=== PATIENT | male | born 1945 | race Caucasian/White ===

== ENCOUNTER 2017-02-12 13:45 | Inpatient (IN) | payer BC ==
--- NOTE | 2017-02-12 14:09 | Emergency Department Record ---
History of Present Illness - General Chief Complaint: Confusion Stated Complaint: CONFUSED Time Seen by Provider: 02/12/17 13:46 Source: Family (patient's ) Mode of Arrival: Wheelchair Limitations: No limitations - History of Present Illness Initial Comments: 71 yo male presents to ED with worsening confusion and decreased intake that began last night. Patient's reports history of cirrhosis and hepatic encephalopathy with similar symptoms as today. Patient's denies any recent illness, fevers, or cough symptoms. Patient has missed 3 doses of his lactulose as well. MD Complaint: Altered mental status Onset/Timin -: Days(s) Severity: Mild Consistency: Constant Context: Liver disease, History of similar presentation Associated Symptoms: Denies other symptoms - Gray Coma Scale Eye Response: (4) Open spontaneously Motor Response: (6) Obeys commands Verbal Response: (4) Confused conversation Jase Total: 14 - Related Data Home Medications Medication Instructions Recorded Confirmed Last Taken Lansoprazole [Prevacid] 30 mg PO BIDAC 10/26/14 02/12/17 02/11/17 Pravastatin Sodium [Pravachol] 40 mg PO DAILY 10/26/14 02/12/17 02/11/17 Rifaximin [Xifaxan] 550 mg PO BID 10/26/14 02/12/17 02/11/17 Aspirin [Aspirin EC] 81 mg PO DAILY 12/18/14 02/12/17 02/11/17 Vitamin E 100 unit PO DAILY 10/12/16 02/12/17 02/11/17 Furosemide 40 mg PO DAILY 11/10/16 02/12/17 02/11/17 Spironolactone [Aldactone] 100 mg PO DAILY 11/10/16 02/12/17 02/11/17 Previous Rx's Medication Instructions Recorded Lactulose 30 gm PO TID #4257 ml 12/11/15 Allergies Allergy/AdvReac Type Severity Reaction Status Date / Time No Known Drug Allergies Allergy Verified 11/08/16 13:07 Travel Screening - Travel/Exposure Within Last 30 Days Have you traveled within the last 30 days?: No - Travel/Exposure Within Last Year Have you traveled outside the [place] in the last year?: No - Additonal Travel Details Have you been exposed to anyone with a communicable illness?: No - Travel Symptoms Symptom Screening: None Review of Systems ROS unobtainable: Due to mental status Neurological: Reports: Confusion Past Medical History - SOCIAL HISTORY Smoking Status: Former smoker Alcohol Use: None Drug Use: None - RESPIRATORY Hx Respiratory Disorders: Yes Hx Sleep Apnea: Yes (20 years) - CARDIOVASCULAR Hx Cardio Disorders: No Comment:: high cholesterol - NEURO Hx Neuro Disorders: Yes Comment:: encephalopathy - GI Hx GI Disorders: Yes Hx Reflux: Yes Hx Liver Disease: Yes - Hx Genitourinary Disorders: Yes Hx Kidney Stones: Yes (10/20/15) Hx UTI: Yes - ENDOCRINE Hx Endocrine Disorders: No - MUSCULOSKELETAL Hx Musculoskeletal Disorders: Yes Hx Arthritis: Yes - PSYCH Hx Psych Problems: No - HEMATOLOGY/ONCOLOGY Hx Hematology/Oncology Disorders: No Hx Bruising: Yes Family Medical History Any Significant Family History?: No Physical Exam - General General Appearance: Alert, Cooperative, No acute distress Limitations: Altered mental status - Head Head exam: Atraumatic, Normocephalic, Normal inspection Head exam detail: negative: Abrasion, Contusion, Salazar's sign, General tenderness, Hematoma, Laceration - Eye Eye exam: Normal appearance. negative: Conjunctival injection, Periorbital swelling, Periorbital tenderness, Scleral icterus - ENT ENT exam: Mucous membranes dry Ear exam: negative: Auricular hematoma, Auricular trauma Nasal Exam: negative: Active bleeding, Discharge, Dried blood, Foreign body Mouth exam: negative: Drooling, Laceration, Muffled voice, Tongue elevation - Neck Neck exam: Normal inspection. negative: Meningismus, Tenderness - Respiratory Respiratory exam: Normal lung sounds bilaterally. negative: Rales, Respiratory distress, Rhonchi, Stridor - Cardiovascular Cardiovascular Exam: Regular rate, Normal rhythm, Normal heart sounds - GI/Abdominal GI/Abdominal exam: Soft, Tenderness (mild, diffuse TTP on examination, no rebound, guarding present). negative: Rebound, Rigid - Rectal Rectal exam: Deferred - exam: Deferred - Extremities Extremities exam: Normal inspection. negative: Calf tenderness, Pedal edema, Tenderness - Back Back exam: Denies: CVA tenderness (R), CVA tenderness (L) - Neurological Neurological exam: Alert, Altered - Psychiatric Psychiatric exam: Normal affect, Normal mood - Skin Skin exam: Normal color. negative: Abrasion Type of lesion: negative: abrasion Course Vital Signs 02/12/17 13:47 Temperature 97.7 F Pulse Rate 63 Respiratory 16 Rate Blood Pressure 100/69 Pulse Ox 99 - Reevaluation(s) Reevaluation #1: 02/12/17 14:43 Labs reviewed, pancytopenia is present, Ammonia level 89 (3x normal). Lactulose ordered. INR, Troponin, and UA pending at this time. Reevaluation #2: 02/12/17 14:50 CT Brain: No acute process Reevaluation #3: 02/12/17 14:53 Case was discussed with Dr. Diaz, will admit for further evaluation and treatment of hepatic encephalopathy. Reevaluation #4: 02/12/17 15:07 EKG: NSR 54 Normal axis, normal intervals Low voltage anterior leads, no acute ST-T wave changes Medical Decision Making - Lab Data Result diagrams: 02/12/17 14:14 02/12/17 14:14 Disposition Disposition: Admit Clinical Impression: Hepatic encephalopathy Disposition: Still a Patient at [facility] Decision to Admit: Admit from ER Decision to Admit Date: 02/12/17 Decision to Admit Time: 14:53 Condition: (2) Stable Time of Disposition: 14:54
[2017-02-12 14:21] LABS: HEMATOCRIT 35.9 % (42.0-52.0); HEMOGLOBIN 12.8 gm/dl (14.0-18.0); MEAN CELL VOLUME 99.4 fl (81-97); MEAN CORPUSCULAR HGB CONC 35.7 g/dl (32-36); MEAN PLATELET VOLUME 10.7 fl (7.4-10.4); PLATELET COUNT 109 K/uL (130-400); RED BLOOD COUNT 3.61 M/uL (4.40-5.70); RED CELL DISTRIBUTION WIDTH 17.4 % (11.5-14.5); WHITE BLOOD COUNT W/O DIFF 3.1 K/uL (4.2-12.2)
[2017-02-12 14:27] LABS: MEAN CORPUSCULAR HEMOGLOBIN 35.4 pg (27-33)
[2017-02-12 14:33] LABS: ALB/GLOB RATIO 0.8 (1.1-1.8); ALBUMIN 2.6 gm/dL (3.5-5.0); ALKALINE PHOSPHATASE 105 U/L (38-126); ALT/SGPT 62 U/L (21-72); ANION GAP 9.3 (7-16); AST/SGOT 40 U/L (17-59); BLOOD UREA NITROGEN 16 mg/dL (9-20); CARBON DIOXIDE 22.7 mmol/L (22-30); CREATININE 1.1 mg/dL (0.66-1.25); EST GLOMERULAR FILTRATION RATE > 60 ml/min; GLUCOSE,RANDOM 100 mg/dL (70-110)
[2017-02-12 14:34] LABS: PLATELET ESTIMATE NORMAL (NORMAL)
[2017-02-12 14:45] LABS: TROPONIN I < 0.012 ng/mL (0.00-0.034)
[2017-02-12] MEDS: LACTULOSE 20 GM/30 ML UDC PO ONE ×2 (14:56→15:13)
[2017-02-12 15:00] LABS: INR 1.28; PROTHROMBIN TIME (PATIENT) 14.5 SECONDS (9.5-12.1)
[2017-02-12] MEDS ORDERED: 0.9 % SODIUM CHLORIDE 1000ML 1,000 ML IV PRN (15:23)
[2017-02-12 16:00] LABS: URINE APPEARANCE CLEAR; URINE BILIRUBIN NEGATIVE (NEGATIVE); URINE BLOOD MODERATE (NEGATIVE); URINE COLOR YELLOW; URINE GLUCOSE (UA) NEGATIVE (NEGATIVE); URINE KETONE NEGATIVE (NEGATIVE); URINE LEUKOCYTE ESTERASE NEGATIVE (NEGATIVE); URINE NITRITE NEGATIVE (NEGATIVE); URINE PROTEIN NEGATIVE (NEGATIVE); URINE UROBILINOGEN 0.2 E.U./dL (0.20 - 1.00)
[2017-02-12 16:04] LABS: URINE BACTERIA NONE SEEN; URINE EPITHELIAL CELLS NONE SEEN (FEW); URINE RBC 36 - 50 (NONE SEEN); URINE WBC NONE SEEN (0-2/hpf)
[2017-02-12] MEDS ORDERED: LANSOPRAZOLE 30 MG PO SCH (16:30)
[2017-02-12] MEDS: LACTULOSE 20 GM/30 ML UDC PO SCH ×2 (16:52→21:18)
[2017-02-12] MEDS: PANTOPRAZOLE SODIUM 40 MG TABLET PO SCH (16:57)
[2017-02-12] MEDS: RIFAXIMIN 550 MG TABLET PO SCH (21:43)
[2017-02-13] MEDS: LACTULOSE 20 GM/30 ML UDC PO SCH ×4 (03:18→17:11)
[2017-02-13 06:34] LABS: HEMATOCRIT 35.1 % (42.0-52.0); HEMOGLOBIN 12.6 gm/dl (14.0-18.0)
[2017-02-13] MEDS: PANTOPRAZOLE SODIUM 40 MG TABLET PO SCH ×2 (06:45→08:18)
[2017-02-13 06:47] LABS: ANION GAP 9.3 (7-16); BLOOD UREA NITROGEN 11 mg/dL (9-20); CARBON DIOXIDE 20.7 mmol/L (22-30); EST GLOMERULAR FILTRATION RATE > 60 ml/min; GLUCOSE,RANDOM 97 mg/dL (70-110)
--- NOTE | 2017-02-13 07:24 | CT SCAN REPORT ---
EXAM: CT OF THE BRAIN WITHOUT CONTRAST HISTORY: MENTAL STATUS CHANGE. TECHNIQUE: CT of the brain without contrast was obtained. Comparison: Prior CT of the brain from 10/11/16. FINDINGS: The globes are intact. The paranasal sinuses and mastoid air cells are unremarkable. No displaced or depressed skull fracture. No intra or extraaxial hemorrhage. CT is limited for evaluation of acute infarct. No CT evidence for large or territorial acute infarct. No mass or midline shift. Mild atrophy. IMPRESSION: MILD ATROPHY. NEGATIVE FOR ACUTE INTRACRANIAL ABNORMALITY. JOB NUMBER: [id number] [facility]
[2017-02-13] MEDS ORDERED: 0.9 % SODIUM CHLORIDE 1000ML 1,000 ML IV ONE ×4 (08:20→19:29)
[2017-02-13] MEDS ORDERED: PANTOPRAZOLE SODIUM IV 40 MG VIAL IVP SCH (08:30)
--- NOTE | 2017-02-13 09:43 | History and Physical Report ---
DATE OF DICTATION: 02/13/2017. DATE OF ADMISSION: 02/12/2017. CHIEF COMPLAINT: Confusion, a decreased level of consciousness, a history of hepatic encephalopathy, and liver failure. HISTORY OF PRESENT ILLNESS: This 71-year-old male was brought into the emergency department by his with a decreased level of consciousness, increasing confusion, and dehydration. His states that he missed three doses of lactulose and his confusion started last night, the night prior to admission. His reports he has cirrhosis and hepatic encephalopathy. He also has sleep apnea. The cirrhosis is of unclear etiology. However he did drink heavily and stopped about five years ago. He has fatty liver infiltration. He was evaluated in the emergency department by Dr. Vogel and was admitted to the hospital for hepatic encephalopathy after speaking with me on the phone. He was given a dose of lactulose in the emergency department, 20 gm, and we bumped it up to 30 gm q. six hours after talking with him on the phone. PAST MEDICAL HISTORY: A significant history for liver cirrhosis, high cholesterol, and sleep apnea. He has been on the liver transplant list at [facility] since at least 2013. PAST SURGICAL HISTORY: He had cholecystectomy, tonsillectomy, colonoscopy, and EGD. FAMILY/PSYCHOSOCIAL HISTORY: Unremarkable. REVIEW OF SYSTEMS: Review of systems is unobtainable from the patient, but the family denied any chills or fever. HEENT: His denies any complaints of shortness of breath or congestion. Respiratory: His breathing is typical for him, according to his . No wheezing. Cardiovascular: He denies chest pain. He is able to answer yes and no questions, but he is confused and cannot follow through with any more than that. Gastrointestinal: His denies he is having any nausea, vomiting, or diarrhea. Genitourinary: No signs of dysuria or hematuria. Neurologic: He is confused. Decreased level of consciousness. He can answer yes and no questions. Extremities: He denies any swelling in the extremities. There is a little bit of 1+ edema of his legs on my examination. PHYSICAL EXAMINATION: General: Height is 5 feet, 1 inches. Weight is 180 pounds. Vital Signs: Temperature is 98.2, pulse is 58, blood pressure is 109/60, respiratory rate is 12, pulse oximetry is 97% on room air. HEENT: Pupils are equal, round, and reactive to light and accommodation. Extraocular muscles are intact. The tympanic membranes are aguirre. Neck: The neck is supple. No jugular venous distension. No hepatojugular reflex. No carotid bruit. The thyroid is smooth. Cardiovascular: Regular rate and rhythm without murmurs, clicks, rubs, or gallops. Respiratory: Decreased breath sounds bilaterally but equal. No wheezing. Abdomen: He is tender in the right upper quadrant and left upper quadrant on palpation. No rebound or rigidity. Extremities: There is 1+ pedal edema. Full range of motion. Breasts: Normal male breasts. Rectal Examination: Deferred. Genitalia: Normal male genitalia. Neurological Examination: Decreased level of consciousness. He is able to answer yes and no. He opens his eyes. He is unable to tell me his name, time, or place. He is moving all four extremities. Sensation is difficult to evaluate because he is not able to give me a good answer when I am touching his arms and legs. Babinski is negative. Mental Status: He is awake. Disoriented to time, person, and place. He is answering questions with yes and no only. IMPRESSIONS: 1. Acute confusion secondary to hepatic encephalopathy. 2. A history of liver cirrhosis of unclear etiology. 3. A history of fatty liver. 4. A history of hypercholesterolemia. 5. A history of obstructive sleep apnea and on CPAP. PLAN: Admit. Increase the dose of lactulose. Cautious intravenous fluids at 15 mL per hour. We will add back his home medications as needed. Manjeet Diaz D.O. Date Time JOB NUMBER: [id number] [facility]
[2017-02-13] MEDS ORDERED: PRAVASTATIN SODIUM 40 MG PO SCH (10:00)
[2017-02-13] MEDS ORDERED: FUROSEMIDE 40 MG TABLET PO SCH (10:00)
[2017-02-13] MEDS ORDERED: SPIRONOLACTONE 25 MG TAB PO SCH (10:00)
[2017-02-13] MEDS ORDERED: ASPIRIN 81 MG TABEC PO SCH (10:00)
[2017-02-13] MEDS: RIFAXIMIN 550 MG TABLET PO SCH (11:10)
--- NOTE | 2017-02-13 19:25 | Discharge Note ---
Discharge Note - Date Date of Discharge Note: 02/13/17 Disposition: Acute Care Hospital Transfer Condition: (2) Stable Additional Instructions: Transfer to [facility] to Dr. Capellan and will transfer to ICU Forms: Patient Portal Access
--- NOTE | 2017-02-14 07:29 | RADIOLOGY REPORT ---
EXAM: CHEST, TWO VIEWS HISTORY: DIFFICULTY BREATHING. TECHNIQUE: Frontal and lateral views of the chest were performed. Comparison: 12/07/15. FINDINGS: The heart size is normal. The lung kennedy are clear. No infiltrate or pleural effusion. There is calcification of the thoracic aorta. The osseous structures are normal. IMPRESSION: NO ACUTE DISEASE PROCESS. JOB NUMBER: [id number] [facility]
--- NOTE | 2017-02-17 13:10 | Discharge Summary ---
DATE OF DISCHARGE TRANSFER: 02/13/2017. DISCHARGE DIAGNOSES: 1. Hepatic encephalopathy. 2. Altered mental status. 3. Deteriorating mental function. 4. A history of cirrhosis of the liver with a history of being on the liver transplant list for four or five years. ATTENDING PHYSICIAN: Manjeet Diaz D.O. REASON FOR HOSPITALIZATION AND TRANSFER: This 71-year-old male came in confused yesterday in the emergency department. He had not taken his lactulose for three or four doses, and he became acutely confused. He was given some lactulose in the emergency room and was admitted to the hospital for further care and evaluation. He was talking to me with yes and no responses this morning. Currently, 12 hours later, he is not talking. He is just grunting. He opens his eyes to verbal commands but is not responding appropriately. He looks more dehydrated, and so at this point I increased his intravenous fluids to 250 per hour. He took three doses of lactulose in our hospital. He has had two large bowel movements since being admitted to the hospital. However, he is getting worse. Because of this I am going to transfer him up to [facility] where he can go into the Intensive Care Unit. If necessary he can have ventilator support and GI evaluation for liver failure and hepatic encephalopathy. FINDINGS IN OUR HOSPITAL: LABORATORY DATA: The ammonia level was elevated; it was 89. The electrolytes were normal. White cells 3,100, hemoglobin was 12.6. His PT is gapped at 14.2 and INR is 1.28. Urinalysis shows specific gravity of 1.015. Red blood cells 36 to 50. DIAGNOSTIC DATA: CT of the head was negative. A chest x-ray was negative. THERAPY PROVIDED: The patient was given lactulose two to three doses and intravenous fluids cautiously. Initially I thought he might be fluid overloaded , and so I slowed his IV rate down. He has worsened and so I increased his intravenous fluids to see if that would help. CONDITION AT DISCHARGE: Worse. He is maintaining his vitals. He responds by opening his eyes to verbal commands. His mouth is very dry. He looks dehydrated at this time. PLAN: The plan is to transfer him to the Intensive Care Unit at [facility] for Dr. Ornelas's care and further evaluation. Manjeet Diaz D.O. Date Time JOB NUMBER: [id number] [facility]
== END 2017-02-13 21:20 | disposition short-term general hospital (02) | DRG 443 ==
LOC: ER 13:45 → UNDOADMIN 15:21 → MEDSURG 15:21
PROVIDERS: ADMIT Emergency Medicine; ATTEND Emergency Medicine
DX: K72.90 Hepatic failure, unspecified without coma (principal); K74.69 Other cirrhosis of liver; K76.0 Fatty (change of) liver, not elsewhere classified; E78.00 Pure hypercholesterolemia, unspecified; G47.39 Other sleep apnea; E86.0 Dehydration
CPT/HCPCS: 70450; 71020; 80048; 80053; 81001; 82140; 84484; 85014; 85018; 85027; 85610; 93005; 93010; 99223; 99239; 99285; C9113